=== PATIENT | female | born 1980 | race Caucasian/White ===

== ENCOUNTER 2016-10-29 11:41 | Day surgery (SDC) | payer OTHER ==
--- NOTE | 2016-10-14 11:04 | PAT Medication Instructions ---
Service Date Oct 14, 2016. Current Home Medication List Venlafaxine Hcl (Effexor Xr), 1 CAP PO QAM [Wellbutrin], 2 TAB PO QAM [Wellbutrin], 1 TAB PO NOON Medication Instructions For Your Scheduled Surgery - Take the following medications the morning of surgery with a sip of water: Venlafaxine Hcl (Effexor Xr), 1 CAP PO QAM [Wellbutrin], 2 TAB PO QAM - Take the following medications as scheduled the night before surgery: [Wellbutrin], 1 TAB PO NOON If you have any questions please call us at [phone] (Seema Medina PA-C) or [phone] or [phone]
[2016-10-14 12:37] LABS: BASO % 0.5 %; BASO ABS # 0.03 K/uL (0-0.2); COMPLETE YES; EOS % 1.6 %; HEMATOCRIT 37.9 % (37-47); IG% 0.2 %; LYMPH % 38.8 %; LYMPH ABS # 2.21 K/uL (1.2-3.4); MEAN CORPUSCULAR HEMOGLOBIN 27.8 pg (25-34); MEAN CORPUSCULAR HGB CONC 34.3 g/dl (32-36); MEAN PLATELET VOLUME 11.5 fL (7.4-10.4); MONO % 6.3 %; NEUT % 52.6 %; PLATELET COUNT 211 K/uL (130-400); RED BLOOD COUNT 4.68 M/uL (4.2-5.4); WHITE BLOOD COUNT 5.69 K/uL (4.8-10.8)
[2016-10-14 13:05] LABS: BUN/CREATININE RATIO 20.7 (10-20); CALCIUM 8.7 mg/dl (8.5-10.1); CREATININE 0.82 mg/dl (0.60-1.20); POTASSIUM 3.6 mmol/L (3.5-5.1)
[~2016-10-29] VITALS: Ht 175.3 cm; Wt 61.5 kg
[~2016-10-29 11:41] MED LIST: LACTATED RINGER'S 1000ML 1,000 ML IV SCH; WELLBUTRIN PO
[2016-10-29 12:08] VITALS: BP 132/80; PULSE 80; TEMP 36.9; O2SAT 99; Ht 175.3 cm; Wt 61.5 kg
--- NOTE | 2016-10-29 13:12 | History & Physical Bridge Note ---
H&P Re-Evaluation Bridge Note: I have examined the patient, reviewed the History & Physical and in the interval since the performance of the History & Physical I have noted the following changes of clinical significance: No changes noted
[2016-10-29] MEDS ORDERED: MoRPHine SULFATE 10 MG/ML CARP/VIAL IV PRN (14:00)
[2016-10-29] MEDS ORDERED: MEPERIDINE HCL 25 MG/ML CARP IV PRN (14:00)
[2016-10-29] MEDS ORDERED: EpHEDrine SULFATE INJ 50 MG/ML AMP IV PRN (14:00)
[2016-10-29] MEDS ORDERED: ONDANSETRON INJ 2 MG/ML 2 ML VIAL IV PRN ×2 (14:00→16:00)
[2016-10-29] MEDS ORDERED: ATROPINE SULFATE 0.1 MG/ML 5ML SYR IV PRN (14:00)
[2016-10-29] MEDS ORDERED: FENTANYL CITRATE INJ 50 MCG/1 ML 2 ML VIAL IV PRN (14:00)
[2016-10-29] MEDS ORDERED: DiphenhydrAMINE HCL 50 MG/ML VIAL ONE (14:20)
[2016-10-29] MEDS ORDERED: RANITIDINE HCL 25 MG/ML INJ ONE (14:20)
[2016-10-29] MEDS ORDERED: ONDANSETRON INJ 2 MG/ML 2 ML VIAL ONE (14:23)
[2016-10-29] MEDS ORDERED: FENTANYL CITRATE INJ 50 MCG/1 ML 2 ML VIAL ONE (14:23)
[2016-10-29] MEDS ORDERED: DEXAMETHASONE SOD INJ 4 MG/ML VIAL ONE ×2 (14:23→14:56)
[2016-10-29] MEDS ORDERED: LIDOCAINE HCL 2% 2 ML VIAL (20MG/ML) ONE (14:23)
[2016-10-29] MEDS ORDERED: PROPOFOL IV EMULSION 10 MG/ML 20 ML VIAL IV ONE (14:23)
[2016-10-29] MEDS ORDERED: MIDAZOLAM HCL 1 MG/ML 2ML VIAL ONE (14:23)
[2016-10-29] MEDS ORDERED: KETOROLAC TROMETHAMINE 30 MG/ML VIAL ONE (14:49)
[2016-10-29] MEDS ORDERED: SODIUM CHLORIDE 0.9% 1000ML 1,000 ML IV SCH (15:48)
[2016-10-29] MEDS ORDERED: OXYCODONE/ACETAMINOPHEN 5-325 TAB PO PRN ×2 (16:00)
[2016-10-29] MEDS ORDERED: PROMETHAZINE HCL INJ 25 MG in SODIUM CHLORIDE 0.9% 50ML 50 ML IV PRN (16:00)
--- NOTE | 2016-10-29 16:15 | Anesthesiology Progress Note ---
Anesthesia Post Op Note Date & Time Oct 29, 2016 at 16:15 Vital Signs Pain Intensity: 0 Vital Signs Past 12 Hours Date Time Temp Pulse Resp B/P Pulse Ox O2 Delivery O2 Flow Rate FiO2 10/29/16 16:13 36.7 10/29/16 16:11 86 16 93 10/29/16 16:11 85 16 10/29/16 16:10 131/90 10/29/16 16:06 80 16 94 10/29/16 16:06 81 16 10/29/16 16:05 84 14 134/91 94 10/29/16 16:05 86 14 10/29/16 16:00 90 20 132/95 97 10/29/16 16:00 91 20 10/29/16 15:55 83 14 10/29/16 15:55 84 14 142/95 98 10/29/16 15:50 87 16 10/29/16 15:50 86 16 145/99 96 10/29/16 15:45 86 12 10/29/16 15:45 85 12 150/100 100 10/29/16 15:40 89 14 156/109 100 10/29/16 15:40 91 14 10/29/16 15:37 164/111 10/29/16 15:35 37.0 106 19 158/94 100 Mask 10 10/29/16 15:35 108 22 10/29/16 15:35 108 22 158/108 92 10/29/16 12:08 36.9 80 16 132/80 99 Room Air Notes Mental Status: alert / awake / arousable, participated in evaluation Pt Amnestic to Procedure: Yes Nausea / Vomiting: adequately controlled Pain: adequately controlled Airway Patency, RR, SpO2: stable & adequate BP & HR: stable & adequate Hydration State: stable & adequate Anesthetic Complications: no major complications apparent Pt doing well.
--- NOTE | 2016-10-29 16:17 | [facility] Post Operative Brief Note ---
Immediate Operative Summary Operative Date Oct 29, 2016. Pre-Operative Diagnosis Endometrial polyp Post-Operative Diagnosis Same as preoperative diagnosis Procedure(s) Performed Hysteroscopy Dilation Currettage, Polypectomy with Myosure Surgeon Dr. Talya Barroso Mold Injector Surgeon(s) None Estimated Blood Loss 25 mL Findings Thickened endometrial lining. Bilateral tubal ostia visualized. Small polyp- appearing areas in endometrial cavity. Specimens Permanent specimens A: Endometrial curettage Drains bladder drained prior to procedure Anesthesia general Complication(s) None Disposition Recovery Room / PACU
[2016-10-29 16:22] VITALS: BP 126/83; PULSE 84; TEMP 37.1; O2SAT 97
--- NOTE | 2016-10-29 16:23 | Discharge Instructions ---
Discharge Instructions Date of Service Oct 29, 2016. Visit Reason for Visit: Endometrial Polyp Discharge Discharge Diagnosis / Problem: endometrial polyp Discharge Goals Goal(s): Diagnostic testing, Therapeutic intervention Activity Recommendations Activity Limitations: per Instructions/Follow-up section Anesthesia . Post Anesthesia Instructions: If you have had General Anesthesia or IV Sedation: * Do not drive today. * Resume driving when surgeon permits. * Do not make important decisions or sign legal documents today. * Call surgeon for: 1. Temperature elevations greater than 101 degrees F. 2. Uncontrollable pain. 3. Excessive bleeding. 4. Persistent nausea and vomiting. 5. Medication intolerance (nausea, vomiting or rash). * For nausea and vomiting use only clear liquids such as: tea, soda, bouillon until nausea subsides, then gradually increase diet as tolerated. * If you have any concerns or questions, call your surgeon's office. If physician is unavailable and it is an emergency, call 911 or go to the nearest emergency room. . Instructions / Follow-Up Instructions / Follow-Up ACTIVITY RECOMMENDATIONS: * Avoid tampons, douching, hot tubs, pools, and intercourse until bleeding has stopped. * May shower as usual. * No strenuous activity for 24-48 hours. After 24-48 hours, you may do anything you feel like doing (driving and sports are okay). SPECIAL CARE INSTRUCTIONS: Special Diet: * Mild nausea may occur in the immediate post-operative period. * Take clear liquids such as tea, cola or bouillon until all nausea has subsided; you may then resume your normal diet. Special Care: * Light bleeding and vaginal spotting can last from a few days to 3-4 weeks. Call your doctor if bleeding becomes heavier than the heaviest part of your period. * Check your temperature twice a day for one week. If it goes above 100.4 degrees Fahrenheit (38.0 Celsius), notify your doctor. * Call your doctor's office for an appointment for 6 weeks after your surgery. FOLLOW-UP VISIT: Call your doctor's office for an appointment for 6 weeks after your surgery. Diet Recommendations Recommended Home Diet: resume previous diet Procedures Procedures Performed: Hysteroscopy Dilation Currettage, Polypectomy with Myosure Pending Studies Studies pending at discharge: no Medical Emergencies . Who to Call and When: Medical Emergencies: If at any time you feel your situation is an emergency, please call 911 immediately. . Non-Emergent Contact Non-Emergency issues call your: Primary Care Provider, Senior Marketing Coordinator . . "Provider Documentation" section prepared by Talya Barroso.
--- NOTE | 2016-10-29 16:39 | OPERATIVE REPORT ---
DATE OF OPERATION: 10/29/2016 PREOPERATIVE DIAGNOSIS: Endometrial polyp. POSTOPERATIVE DIAGNOSIS: Same. PROCEDURES PERFORMED: Hysteroscopy, dilation and curettage and polypectomy with MyoSure device. SURGEON: Talya Barroso DO VENDOR MANAGEMENT ASSOCIATE: None. ESTIMATED BLOOD LOSS: 25 mL. FINDINGS: Thickened endometrial lining. Bilateral tubal ostia visualized, small polyp appearing areas in the endometrial cavity. SPECIMENS: Endometrial curettage. DRAINS: Bladder drained prior to procedure. ANESTHESIA: General. COMPLICATIONS: None. DISPOSITION: Stable and good to recovery room. INDICATIONS FOR PROCEDURE: The patient is a 36-year-old G0 with history of irregular vaginal bleeding, who underwent ultrasound that showed a thickened lining with area that appeared to be an endometrial polyp. She was then referred to me for surgical management and elected to undergo the above procedures. DESCRIPTION OF PROCEDURE: The patient was seen in the preoperative holding area where risks, benefits, alternatives to surgery were reviewed. She elected to proceed with surgery. She had previously signed informed consent in the office. All questions were answered. She was taken to the operating room where general anesthesia was introduced. She was prepared and draped in the usual sterile fashion with feet in Yellofin stirrups in the dorsal lithotomy position. A timeout was called and confirmed. A weighted speculum was placed in the vagina. Cervix was visualized and its anterior lip was grasped with a single tooth tenaculum. The uterus was sounded and the cervix was gently dilated to admit the MyoSure hysteroscope. The hysteroscope was inserted, the above noted findings were discovered and the MyoSure device was used to remove areas that appeared to be small endometrial polyps from the endometrial cavity. Due to the thickened appearance of the lining, after withdrawal of the MyoSure device, a gentle curettage was undertaken with a sharp curette. All of these curettings were sent to pathology for evaluation. The single tooth tenaculum was removed and pressure was used with a ring forceps to attempt to obtain hemostasis. This site continued bleeding however and therefore a [id number]-[id number] stitch of 3-0 Vicryl was used to obtain excellent hemostasis on the anterior lip of the cervix. All instruments were removed from the vagina. Again, excellent hemostasis was observed. The patient was taken to the recovery room in stable and good condition. I attest to the content of the Intraoperative Record and any orders documented therein. Any exceptio ns are noted below.
[2016-10-29 16:50] VITALS: BP 127/84; PULSE 91; TEMP 36.1; O2SAT 97
[2016-10-29 17:20] VITALS: BP 128/78; PULSE 95; TEMP 36.9; O2SAT 98
[2017-06-09] MEDS ORDERED: VENL150C PO (10:33)
== END 2016-10-29 17:27 | disposition home or self-care (01) ==
LOC: C.ACU 11:41
PROVIDERS: ATTEND Obstetrics & Gynecology
DX: N84.0 Polyp of corpus uteri (principal); N93.8 Other specified abnormal uterine and vaginal bleeding; F41.9 Anxiety disorder, unspecified

== ENCOUNTER 2017-06-09 18:44 | Emergency (ER) | payer OTHER ==
[~2017-06-09] VITALS: Ht 177.8 cm; Wt 63.5 kg
[~2017-06-09 18:44] MED LIST changes: -LACTATED RINGER'S 1000ML 1,000 ML IV SCH; +VENL150C PO
[2017-06-09 18:47] VITALS: TEMP 37; Ht 177.8 cm; Wt 63.5 kg
[2017-06-09 19:31] LABS: BASO % 0.7 %; BASO ABS # 0.04 K/uL (0-0.2); COMPLETE YES; EOS % 1.3 %; IG% 0.2 %; LYMPH % 41.4 %; LYMPH ABS # 2.25 K/uL (1.2-3.4); MEAN CORPUSCULAR HEMOGLOBIN 28.4 pg (25-34); MEAN CORPUSCULAR HGB CONC 34.3 g/dl (32-36); MEAN PLATELET VOLUME 11.1 fL (7.4-10.4); MONO % 7.9 %; NEUT % 48.5 %; PLATELET COUNT 264 K/uL (130-400); RED BLOOD COUNT 4.82 M/uL (4.2-5.4); WHITE BLOOD COUNT 5.44 K/uL (4.8-10.8)
[2017-06-09] MEDS ORDERED: GUMMY MVI PO (19:35)
[2017-06-09] MEDS ORDERED: BUPRTAB51 PO (19:35)
[2017-06-09] MEDS ORDERED: ACET-1256 PO (19:35)
[2017-06-09 19:43] LABS: PARTIAL THROMBOPLASTIN RATIO 1.1; PROTHROMBIN TIME (PATIENT) 10.3 SECONDS (9.0-12.0)
[2017-06-09 19:50] LABS: BUN/CREATININE RATIO 18.6 (10-20); CALCIUM 9.1 mg/dl (8.5-10.1); CREATININE 0.92 mg/dl (0.60-1.20); POTASSIUM 3.3 mmol/L (3.5-5.1)
--- NOTE | 2017-06-09 19:56 | EMERGENCY ROOM VISIT NOTE ---
ED Visit Note First contact with patient: 18:52 CHIEF COMPLAINT: Vaginal bleeding HISTORY OF PRESENT ILLNESS: This 37-year-old female presents to the emergency department with complaint of heavy vaginal bleeding and passing large clots. She states that she started her period 3 days ago, which seemed normal for her. This morning she woke up in a pool of blood, completely soaking her bedsheets and had passed several large, golf ball sized clots. She states that she has been wearing a pad and a tampon all day, and has had to change these at least 8- 10 times today due to heavy bleeding and passing large clots, she states at least 6 or 7 large clots so far today. She has a little cramping occasionally but denies severe or sustained pain, denies abdominal pain or back pain. She has not had any abdominal injuries, fever or chills, nausea or vomiting. Her menstrual periods are usually regular. She denies dizziness or weakness, chest pain, shortness of breath, palpitations, syncope, urinary complaints. She denies concern for or STDs. REVIEW OF SYSTEMS: A complete 10 point review of systems was reviewed with the patient with pertinent positives and negatives as per history of present illness. All else were negative. PMH: History of endometrial polyps. SOCIAL HISTORY: Patient lives at home. She is a PhD student at [employer]. Denies alcohol, tobacco, illicit drugs. PHYSICAL EXAM: Vital Signs: Reviewed Nurse's notes. There was no postural hypotension or tachycardia. CONSTITUTIONAL: No acute distress. Well appearing and well nourished. Alert and oriented X 4 with normal affect. HEENT: Normocephalic, atraumatic. Pupils equal, round and reactive to light, EOMI. TMs normal. Pharynx normal. NECK: Supple, full active range of motion without discomfort. RESPIRATORY: Clear to auscultation bilaterally with no wheezing, crackles, rhonchi or stridor. Equal expansion bilaterally. CARDIOVASCULAR: Regular rate and rhythm with no murmurs, rubs or gallops. Normal peripheral perfusion. No edema. ABDOMEN: Soft, nontender, nondistended. Bowel sounds present in all quadrants. No palpable masses, no hepatosplenomegaly. GENITOURINARY: PELVIC EXAM: VULVA: No ulcers, vesicles or atrophy. VAGINA: No abnormal vaginal discharge or foul odor appreciated. CERVIX: Closed, pink, nontender, no discharge. UTERUS: Normal size, nontender. ADNEXAE: No masses or tenderness. A nurse was present as a radiation oncology nurse during the examination. There was a small amount of dark red blood in the vaginal vault , but no active bleeding through or retained blood clots within the cervical os. MUSCULOSKELETAL: Full range of motion of all joints without discomfort. INTEGUMENTARY: No rash or other significant dermatologic conditions noted. NEUROLOGIC: Cranial nerves II-XII grossly intact. No focal neurologic deficits noted. IMAGING: PELVIC ULTRASOUND, TRANSABDOMINAL AND TRANSVAGINAL HISTORY: heavy vaginal bleeding, passing large clots, hx of endometrial polyps COMPARISON: None. FINDINGS: Uterus: 6.4 x 5.7 x 3.5 cm. Small nabothian cyst. Endometrial stripe: Slightly heterogeneous. 7 mm in thickness. Right ovary: Normal in size and demonstrates normal color flow. Left ovary: Normal in size and demonstrates normal color flow. Miscellaneous:No pelvic free fluid. IMPRESSION: Endometrium is slightly heterogeneous but normal in thickness. Normal bilateral ovaries. EMERGENCY DEPARTMENT COURSE: I examined the patient. CBC is normal. A test is negative. Pelvic ultrasound as above, no significant abnormalities noted. Pelvic exam was fairly unremarkable, a very small amount of dark blood noted within the vaginal vault, no active bleeding, cervical os is closed. Patient declined STD testing, cultures were not sent. Patient was updated on all results and plan for discharge home. She was encouraged to follow closely with her stamp pad maker, she states she already has an appointment scheduled. She was also educated on return precautions should her symptoms worsen, she verbalized understanding. The patient was discharged home in stable condition and ambulatory. Current/Historical Medications Scheduled Acetaminophen (Tylenol), 2-3 TABS PO PRN UD Bupropion (Wellbutrin-Xl), 300 MG PO QAM Venlafaxine Hcl (Effexor Xr), 1 CAP PO QAM [Gummy Mvi], 1 TAB PO DAILY Allergies Coded Allergies: Unclassified Drugs (Unverified Allergy, Unknown, HIVES DEVELOPED WITH JAW SURG-NAME OR TYPE OF DRUG UNKNOWN, 10/29/16) 2008 [facility] Vital Signs Date Time Temp Pulse Resp B/P (MAP) Pulse Ox O2 Delivery O2 Flow Rate FiO2 06/09/17 20:06 78 18 149/99 99 Room Air 06/09/17 18:47 37.0 100 18 143/104 96 Room Air Laboratory Results 06/09/17 18:56 Red Blood Count 4.82, Mean Corpuscular Volume 83.0, Mean Corpuscular Hemoglobin 28.4, Mean Corpuscular Hemoglobin Concent 34.3, Mean Platelet Volume 11.1, Neutrophils (%) (Auto) 48.5, Lymphocytes (%) (Auto) 41.4, Monocytes (%) (Auto) 7.9, Eosinophils (%) (Auto) 1.3, Basophils (%) (Auto) 0.7, Neutrophils # (Auto) 2.64, Lymphocytes # (Auto) 2.25, Monocytes # (Auto) 0.43, Eosinophils # (Auto) 0.07, Basophils # (Auto) 0.04 06/09/17 18:56 Test 06/09/17 18:56 06/09/17 22:12 White Blood Count 5.44 K/uL (4.8-10.8) Red Blood Count 4.82 M/uL (4.2-5.4) Hemoglobin 13.7 g/dL (12.0-16.0) Hematocrit 40.0 % (37-47) Mean Corpuscular Volume 83.0 fL (80-100) Mean Corpuscular Hemoglobin 28.4 pg (25-34) Mean Corpuscular Hemoglobin Concent 34.3 g/dl (32-36) Platelet Count 264 K/uL (130-400) Mean Platelet Volume 11.1 fL (7.4-10.4) Neutrophils (%) (Auto) 48.5 % Lymphocytes (%) (Auto) 41.4 % Monocytes (%) (Auto) 7.9 % Eosinophils (%) (Auto) 1.3 % Basophils (%) (Auto) 0.7 % Neutrophils # (Auto) 2.64 K/uL (1.4-6.5) Lymphocytes # (Auto) 2.25 K/uL (1.2-3.4) Monocytes # (Auto) 0.43 K/uL (0.11-0.59) Eosinophils # (Auto) 0.07 K/uL (0-0.5) Basophils # (Auto) 0.04 K/uL (0-0.2) RDW Standard Deviation 38.1 fL (36.4-46.3) RDW Coefficient of Variation 12.7 % (11.5-14.5) Immature Granulocyte % (Auto) 0.2 % Immature Granulocyte # (Auto) 0.01 K/uL (0.00-0.02) Prothrombin Time 10.3 SECONDS (9.0-12.0) Prothromb Time International Ratio 1.0 (0.9-1.1) Activated Partial Thromboplast Time 27.8 SECONDS (21.0-31.0) Partial Thromboplastin Ratio 1.1 Anion Gap 10.0 mmol/L (3-11) Est Creatinine Clear Calc Drug Dose 82.3 ml/min Estimated GFR () 90.9 Estimated GFR (Non- 78.4 BUN/Creatinine Ratio 18.6 (10-20) Calcium Level 9.1 mg/dl (8.5-10.1) Total Bilirubin 0.2 mg/dl (0.2-1) Aspartate Amino Transf (AST/SGOT) 61 U/L (15-37) Alanine Aminotransferase (ALT/SGPT) 30 U/L (12-78) Alkaline Phosphatase 100 U/L (45-117) Total Protein 8.4 gm/dl (6.4-8.2) Albumin 4.2 gm/dl (3.4-5.0) Globulin 4.2 gm/dl (2.5-4.0) Albumin/Globulin Ratio 1.0 (0.9-2) Human Chorionic Gonadotropin, Qual NEG (NEG) Departure Information Impression Primary Impression: DUB (dysfunctional uterine bleeding) Dispostion Home / Self-Care Condition GOOD Referrals Aliyah Wolfe M.D. (PCP) Patient Instructions ED Bleed Irregular Vaginal, [facility] Additional Instructions Drink plenty of fluids to stay well hydrated. You may take ibuprofen 600 mg every 6-8 hours as needed for any abdominal cramping. Keep your scheduled appointment with your stamp pad maker, and call them sooner for any worsening or persistent symptoms. Please return to the ER for worsening symptoms, including severe abdominal or back pain, persistent heavy bleeding (soaking through 2 or more pads/tampons every hour), fever/chills, severe dizziness or passing out, or any other concerns. School Instructions Return To School: 1 day
[2017-06-09 20:07] LABS: PREG INTERNAL NEGATIVE QC NEG CLEAR BACKGROUND; PREG INTERNAL POSITIVE QC POS CONTROL LINE
--- NOTE | 2017-06-09 21:19 | DIAGNOSTIC IMAGING REPORT ---
PELVIC ULTRASOUND, TRANSABDOMINAL AND TRANSVAGINAL HISTORY: heavy vaginal bleeding, passing large clots, hx of endometrial polyps COMPARISON: None. FINDINGS: Uterus: 6.4 x 5.7 x 3.5 cm. Small nabothian cyst. Endometrial stripe: Slightly heterogeneous. 7 mm in thickness. Right ovary: Normal in size and demonstrates normal color flow. Left ovary: Normal in size and demonstrates normal color flow. Miscellaneous:No pelvic free fluid. IMPRESSION: Endometrium is slightly heterogeneous but normal in thickness. Normal bilateral ovaries. Electronically signed by: David Washington M.D. 06/09/2017 9:17 PM Dictated Date/Time: 06/09/2017 9:16 PM
[2017-06-09 22:36] LABS: URINE APPEARANCE CLEAR (CLEAR); URINE BILIRUBIN NEG (NEG); URINE COLOR YELLOW; URINE EPITHELIAL CELL AUTO 20-30 /lpf (0-5); URINE NITRITE NEG (NEG); URINE PH 6.5 (4.5-7.5); UROBILINOGEN NEG (NEG)
[2017-06-09 22:37] LABS: MANUAL MICROSCOPIC REQUIRED? NO; REVIEW REQ? NO
[2017-06-09 22:41] VITALS: BP 136/85; PULSE 93; O2SAT 99
== END 2017-06-09 22:42 | disposition home or self-care (01) ==
LOC: C.EDB 18:47
DX: N93.8 Other specified abnormal uterine and vaginal bleeding (principal)